=== PATIENT | female | born 1955 | race Caucasian/White ===

== ENCOUNTER → 2019-01-18 | Outpatient (CLI) | payer OTHER ==
--- NOTE | 2019-01-18 13:48 | RADIOLOGY IMAGING REPORT ---
[place] [facility] [place] NAME: Cassie Rangel : 1955 MR: [id number] V: [id number] EXAM DATE: ORDERING PHYSICIAN: DOMONIQUE LOGAN TECHNOLOGIST: Location: [facility] Patient: Cassie Rangel : 1955 Visit/Account:[id number] Date of Sevice: 01/18/2019 BONE DENSITY Additional Pertinent history: Osteoporosis screening COMPARISON STUDIES: 12/11/2010 FINDINGS: LUMBAR SPINE: The bone mineral density (BMD) measured from L1-L4 correlates with a Z-score of -0.3 and a T-score of -1.3 which is osteopenia as defined by the World Health Organization. The corresponding risk of frac ture in the lumbar spine is increased 2-3 times compared with a young adult reference population. Thi s value has decreased by 2.8% since the prior study. More than 5% change is considered significant. HIP: Bone mineral density (BMD) measured in the left total hip correlates with a Z-score of 1.2 and a T-s core of 0.4 which is normal bone mineral density as defined by the World Health Organization. The cor responding risk of fracture in the hip is not increased compared with a young adult reference populat ion. Total hip value has increased by 1.1% since the prior study. More than 5% change is considered s ignificant. Bone mineral density (BMD) measured in the left femoral neck region measures 1.06 g/cm2. IMPRESSION: 1. Lumbar spine: Osteopenia. No significant change. 2. Left hip: Normal bone mineral density. Total hip value has shown no significant change. Left femoral neck: bone mineral density is 1.06 g/cm2 FRAX WHO Fracture Risk Assessment Tool link: http://www.tom.ac.uk/FRAX/index.jsp The next DEXA scan of this patient should include the following sites: L1 - L4 and left hip PLEASE NOTE: 1. The World Health Organization defines low BMD as follows: T-score Normal > -1 Osteopenia -1 to -2.5 Osteoporosis < -2.5 without fractures Established osteoporosis < -2.5 with fractures 2. In general, you may wish to consider: Diagnosis Treatment Follow-up DEXA Normal BMD Prevention 2-3 years Osteopenia Prevention/therapy 1-2 years Osteoporosis Therapy Yearly 3. Fracture risk estimated from the T-score is more accurate for vertebral fractures (often spontaneo us) than for hip fractures. Report Dictated By: Eric Ledesma MD at 01/18/2019 1:38 PM Report E-Signed By: Eric Ledesma MD at 01/18/2019 1:40 PM WSN:[email or web address]
== END ==
LOC: RAD 01:06
PROVIDERS: ATTEND Nurse Practitioner Family
DX: M85.88 Other specified disorders of bone density and structure, other site (principal)
CPT/HCPCS: 77080